=== PATIENT | female | born 1990 | race Caucasian/White ===

== ENCOUNTER 2019-03-28 19:17 | Inpatient (IN) | payer OTHER ==
[~2019-03-28] VITALS: Ht 170.2 cm; Wt 78.3 kg
[~2019-03-28 19:17] MED LIST: [UNRECOGNIZED DRUG - OTHER] PO
[2019-03-28] MEDS ORDERED: ACETAMINOPHEN 500 MG TABLET ONE (19:51)
[2019-03-28] MEDS ORDERED: MORPHINE SULFATE 4 MG/ML, 1ML ONE (19:52)
[2019-03-28] MEDS ORDERED: ONDANSETRON 2MG/ML, 2ML ONE (19:52)
[2019-03-28 19:56] LABS: CULTURE INDICATED? YES; MICROSCOPIC INDICATED
--- NOTE | 2019-03-28 19:57 | NUR ---
IV SITE STARTED, LABS DRAWN, IV FLUIDS INFUSING, PT MEDICATED PER MAR. URINE SAMPLE SENT
[2019-03-28] MEDS ORDERED: ACETAMINOPHEN 500 MG TABLET PO ONE (20:00)
[2019-03-28] MEDS ORDERED: MORPHINE SULFATE 4 MG/ML, 1ML IVPush PRN ×3 (20:00→22:30)
[2019-03-28] MEDS ORDERED: SODIUM CHLORIDE 0.9% 1,000ML IVBOLUS ONE ×2 (20:00→21:30)
[2019-03-28] MEDS ORDERED: ONDANSETRON 2MG/ML, 2ML IVPush ONE (20:00)
[2019-03-28 20:03] LABS: BASOPHILS # (AUTO) 0.02 x10^3/uL (0-0.1); BASOPHILS % (AUTO) 0 % (0-1); EOSINOPHILS # (AUTO) 0.39 x10^3/uL (0-0.4); EOSINOPHILS % (AUTO) 3 % (1-7); LYMPHOCYTES # (AUTO) 0.79 x10^3/uL (1-3.4); LYMPHOCYTES % (AUTO) 6 % (22-44); MD NO; MEAN CORPUSCULAR HEMOGLOBIN 30.5 pg (27.0-34.8); MEAN CORPUSCULAR HGB CONC 33.7 g/dL (32.4-35.8); MEAN CORPUSCULAR VOLUME 90.6 fL (80-100); MEAN PLATELET VOLUME 7.3 fL (7.4-10.4); MONOCYTES % (AUTO) 6 % (2-9); NEUTROPHILS # (AUTO) 10.56 x10^3/uL (1.8-6.8); NEUTROPHILS % (AUTO) 84 % (42-75); PLATELET COUNT 409 x10^3/uL (130-400); RED BLOOD COUNT 4.74 x10^6/uL (3.82-5.3); RED CELL DISTRIBUTION WIDTH 12.8 % (9.6-15.2)
[2019-03-28 20:11] LABS: ALANINE AMINOTRANSFERASE 21 U/L (12-78); ANION GAP 6 mmol/L (5-15); CALCIUM 8.8 mg/dL (8.5-10.1); CHLORIDE 102 mmol/L (98-107)
[2019-03-28 20:14] LABS: ALKALINE PHOSPHATASE 66 U/L (45-117); BILIRUBIN,TOTAL 0.5 mg/dL (0.2-1.0); CREATININE 0.75 mg/dL (0.55-1.02); TOTAL PROTEIN 7.5 g/dL (6.4-8.2)
[2019-03-28] MEDS ORDERED: CEFTRIAXONE PMX 1GM/50ML 50 ML ONE (20:21)
[2019-03-28] MEDS ORDERED: CEFTRIAXONE PMX 1GM/50ML 50 ML IV ONE (20:30)
[2019-03-28] MEDS ORDERED: OMNIPAQUE 350 MG/ML, 100ML BOTTLE ONE (20:37)
--- NOTE | 2019-03-28 21:18 | NUR ---
PT RESTING ON GURNEY, IV FLUIDS, ABX INFUSING, MONITORS IN PLACE, CALL LIGHT WITHIN REACH, PT DENIES NEEDS AT THSI TIME. AWAITING ROOM FOR ADMIT
[2019-03-28] MEDS ORDERED: ONDANSETRON 2MG/ML, 2ML IVPush PRN (21:30)
[2019-03-28] MEDS ORDERED: SODIUM CHLORIDE 0.9% 1,000 ML IV ONE (21:30)
--- NOTE | 2019-03-28 21:38 | NUR ---
PT UP TO RR WITH STANDBY ASSIST. NOW BACK RESTING ON GURNEY, MONITORS REAPPLIED, SIDERAILS UP X2, CALL LIGHT WITHIN REACH
[2019-03-28] MEDS: D5%-0.9% NACL 1,000 ML IV SCH (23:16)
[2019-03-28] MEDS: CIPROFLOXACIN/PMX 400MG/200ML 200 ML IV SCH (23:17)
[2019-03-28 23:25] VITALS: BP 135/90
[2019-03-28] MEDS: HYDROcodone/APAP 5/325 TABLET PO PRN (23:49)
[2019-03-29 02:07] VITALS: BP 120/78
[2019-03-29 03:24] VITALS: BP 136/70
[2019-03-29 04:31] LABS: MEAN CORPUSCULAR HEMOGLOBIN 30.1 pg (27.0-34.8); MEAN CORPUSCULAR HGB CONC 32.9 g/dL (32.4-35.8); MEAN CORPUSCULAR VOLUME 91.5 fL (80-100); MEAN PLATELET VOLUME 7.3 fL (7.4-10.4); PLATELET COUNT 335 x10^3/uL (130-400); RED BLOOD COUNT 4.29 x10^6/uL (3.82-5.3); RED CELL DISTRIBUTION WIDTH 13.3 % (9.6-15.2)
[2019-03-29 04:44] LABS: ANION GAP 7 mmol/L (5-15); CALCIUM 8.3 mg/dL (8.5-10.1); CHLORIDE 99 mmol/L (98-107)
[2019-03-29 04:51] LABS: MD YES
[2019-03-29 04:54] LABS: <PLATELET ESTIMATE> ADEQUATE; <RBC MORPHOLOGY> NORMAL; BAND#(MANUAL) 0.51 x10^3/uL; BANDS%(MANUAL) 4 % (0-7); BASOS#(MANUAL) 0.13 x10^3/uL (0-0.1); BASOS% (MANUAL) 1 % (0-1); EOS#(MANUAL) 0.13 x10^3/uL (0.0-0.4); EOS% (MANUAL) 1 % (1-7); LYMPH#(MANUAL) 0.38 x10^3/uL (1-3.4); LYMPHS% (MANUAL) 3 % (22-44); MONOS% (MANUAL) 7 % (2-9); SEG#(MANUAL) 10.75 x10^3/uL (1.8-6.8); SEGS% (MANUAL) 84 % (42-75); SMALL PLATELETS 1+
[2019-03-29] MEDS: ACETAMINOPHEN 325 MG TABLET PO PRN ×2 (04:57→11:40)
[2019-03-29 07:12] VITALS: BP 132/78
[2019-03-29] MEDS: CIPROFLOXACIN/PMX 400MG/200ML 200 ML IV SCH ×2 (10:34→22:42)
[2019-03-29] MEDS: D5%-0.9% NACL 1,000 ML IV SCH ×2 (10:34→15:52)
[2019-03-29] MEDS: HYDROcodone/APAP 5/325 TABLET PO PRN ×3 (10:41→23:38)
[2019-03-29] MEDS: ONDANSETRON 4 MG TABLET PO PRN ×2 (11:31→20:22)
[2019-03-29 11:41] VITALS: BP 128/84
[2019-03-29 12:48] VITALS: BP 127/75
[2019-03-29] MEDS: SODIUM CHLORIDE 0.45% 1,000 ML IV SCH ×2 (17:01→22:42)
[2019-03-29 19:01] VITALS: BP 124/80
[2019-03-30 02:19] VITALS: BP 127/84
[2019-03-30] MEDS: SODIUM CHLORIDE 0.45% 1,000 ML IV SCH ×3 (05:25→21:10)
[2019-03-30 06:47] VITALS: BP 144/97
[2019-03-30] MEDS ORDERED: PROCHLORPERAZINE 5 MG/ML, 2ML IVPush PRN (07:30)
[2019-03-30] MEDS: CIPROFLOXACIN/PMX 400MG/200ML 200 ML IV SCH ×2 (09:43→22:42)
[2019-03-30] MEDS: ONDANSETRON 2MG/ML, 2ML IVPush PRN ×2 (11:52→21:10)
[2019-03-30 12:09] VITALS: BP 137/90
[2019-03-30 19:59] VITALS: BP 133/96
[2019-03-31 02:12] VITALS: BP 123/82
[2019-03-31] MEDS: SODIUM CHLORIDE 0.45% 1,000 ML IV SCH ×2 (03:35→08:52)
[2019-03-31 04:37] LABS: BASOPHILS # (AUTO) 0.03 x10^3/uL (0-0.1); BASOPHILS % (AUTO) 0 % (0-1); EOSINOPHILS # (AUTO) 0.39 x10^3/uL (0-0.4); EOSINOPHILS % (AUTO) 5 % (1-7); LYMPHOCYTES # (AUTO) 1.33 x10^3/uL (1-3.4); LYMPHOCYTES % (AUTO) 16 % (22-44); MD NO; MEAN CORPUSCULAR HEMOGLOBIN 30.3 pg (27.0-34.8); MEAN CORPUSCULAR HGB CONC 33.3 g/dL (32.4-35.8); MONOCYTES # (AUTO) 0.93 x10^3/uL (0.2-0.8); MONOCYTES % (AUTO) 11 % (2-9); NEUTROPHILS # (AUTO) 5.91 x10^3/uL (1.8-6.8); NEUTROPHILS % (AUTO) 69 % (42-75); PLATELET COUNT 387 x10^3/uL (130-400); RED BLOOD COUNT 3.92 x10^6/uL (3.82-5.3); RED CELL DISTRIBUTION WIDTH 12.8 % (9.6-15.2)
[2019-03-31 04:53] LABS: ANION GAP 8 mmol/L (5-15); CALCIUM 8.3 mg/dL (8.5-10.1); CHLORIDE 108 mmol/L (98-107); CREATININE 0.61 mg/dL (0.55-1.02)
[2019-03-31 07:54] VITALS: BP 131/93
[2019-03-31] MEDS: CIPROFLOXACIN/PMX 400MG/200ML 200 ML IV SCH (09:54)
[2019-03-31] MEDS ORDERED: CIPR500T87 PO (11:47)
== END 2019-03-31 11:55 | disposition home or self-care (01) | DRG 872 ==
LOC: ED 21:11 → EDIP 22:16 → 4NW 22:18 → DCLOUNGE 03-31 11:39
PROVIDERS: ADMIT Specialist; ATTEND Specialist
DX: A41.9 Sepsis, unspecified organism (principal); N13.6 Pyonephrosis; B96.20 Unspecified Escherichia coli [E. coli] as the cause of diseases classified elsewhere; R11.2 Nausea with vomiting, unspecified; Z90.710 Acquired absence of both cervix and uterus; Z85.41 Personal history of malignant neoplasm of cervix uteri
CPT/HCPCS: 36415; 84145; 99291; J7042; 74177; 80048; 80053; 81001; 83605; 83690; 85025; 87040; 87077; 87086; 87186; 93005; G0378; J0696; J0744; J2405; Q0162; Q9967; J0780; J2270; J7030

== ENCOUNTER → 2019-07-09 | Outpatient (CLI) | payer OTHER ==
[~2019-07-09] MED LIST changes: +CIPR500T87 PO; +OMNIPAQUE 350 MG/ML, 100ML BOTTLE ONE
== END | disposition home or self-care (01) ==
LOC: RAD 13:25
PROVIDERS: ATTEND Physician Assistant
DX: D06.9 Carcinoma in situ of cervix, unspecified (principal); R87.810 Cervical high risk human papillomavirus (HPV) DNA test positive; N80.9 Endometriosis, unspecified; G89.18 Other acute postprocedural pain; Z96.0 Presence of urogenital implants; Z88.5 Allergy status to narcotic agent
CPT/HCPCS: 71260; 74177; Q9967